=== PATIENT | male | born 1945 | race African-American/Black ===

== ENCOUNTER 2020-10-26 11:12 | Inpatient (IN) ==
[2020-10-26] MEDS ORDERED: LACTATED RINGERS 1,000 ML IV ONE ×2 (11:49→14:01)
[2020-10-26 13:01] LABS: Basophils % 0.2 % (0.0-0.8); Eosinophils % 0.1 % (0.00-10.9); Hematocrit 48.5 VOL% (42.0-52.0); Hemoglobin 16.6 GM/DL (14.0-18.0); Immature Granulocytes % 0.4 %; Immature Granulocytes Absolute 0.04 #; Lymphocytes # 0.7 10*3/uL (1.4-4.0); Lymphocytes % 7.1 % (21.2-54.2); Mean Corpuscular HGB Conc 34.2 GM/DL (32-36); Mean Corpuscular Volume 81.4 FL (87-102); Monocytes % 4.6 % (1.7-12.7); Neutrophils % 87.6 % (38.7-73.9); Platelet Count 288 T/CUMM (130-400); Red Blood Count 5.96 MC/CUMM (3.8-5.5); Red Cell Distribution Width 12.6 % (9.3-17.3)
[2020-10-26 14:33] LABS: Alanine Aminotransferase < 9 U/L (16-61); Albumin 2.9 G/DL (3.4-5.0); Alkaline Phosphatase 89 U/L (45-117); Aspartate Amino Transferase 16 U/L (0-37); Blood Urea Nitrogen 32 MG/DL (7-18); Calcium 10.7 MG/DL (8.5-10.1); Carbon Dioxide 27 MMOL/L (21-32); Estimated Glom Filtration Rate 73 ML/MIN; Glucose 102 MG/DL (74-106); Osmolality,Calculated 289.1 MOS/KG (273-304); Potassium 4.8 MMOL/L (3.5-5.1); Sodium 142 MMOL/L (136-145); Total Protein 8.2 G/DL (6.4-8.2)
[2020-10-26] MEDS ORDERED: PANTOPRAZOLE 40 MG VIAL IV STA (15:55)
[2020-10-26] MEDS ORDERED: SODIUM CHLORIDE 0.9% 2,000 ML IV SCH (16:00)
[2020-10-26] MEDS: cefTRIAXone 1,000 MG in SODIUM CHLORIDE 0.9% 100 ML IV SCH (16:33)
[2020-10-26] MEDS ORDERED: ACETAMINOPHEN 650 MG SUPP RECTAL PRN (16:40)
[2020-10-26] MEDS ORDERED: ONDANSETRON 4 MG/2 ML VIAL IV PRN (16:40)
[2020-10-26 16:44] LABS: Bacteria,Urine Occasional /HPF (Few); Bilirubin,Urine Negative (Negative); Blood, Urine Small mg/dL (Negative); Glucose,Urine (UA) Negative (Negative); Hyaline Casts,Urine 49 /LPF (0-3); Ketones,Urine 5 mg/dL (Negative); Mucus,Urine Occasional /LPF (Occasional); Nitrite,Urine Negative (Negative); Protein,Urine Negative; RBC,Urine 2 /HPF (0-4); Squamous Epithelial Cell,Urine Occasional /HPF (0-10); Urine Appearance CLEAR (Clear); Urine Color Amber (Yellow); Urine Specific Gravity 1.016 (1.001-1.035)
[2020-10-26] MEDS: SODIUM CHLORIDE 0.9% 1,000 ML IV SCH (18:32)
[2020-10-26] MEDS: PANTOPRAZOLE 40 MG VIAL IV SCH (21:56)
[2020-10-27 04:30] LABS: Basophils % 0.2 % (0.0-0.8); Eosinophils % 0.3 % (0.00-10.9); Hematocrit 48.7 VOL% (42.0-52.0); Hemoglobin 16.3 GM/DL (14.0-18.0); Immature Granulocytes % 0.6 %; Immature Granulocytes Absolute 0.06 #; Lymphocytes # 0.7 10*3/uL (1.4-4.0); Lymphocytes % 6.7 % (21.2-54.2); Mean Corpuscular HGB Conc 33.5 GM/DL (32-36); Monocytes % 6.4 % (1.7-12.7); Neutrophils % 85.8 % (38.7-73.9); Platelet Count 278 T/CUMM (130-400); Red Blood Count 5.87 MC/CUMM (3.8-5.5); Red Cell Distribution Width 12.9 % (9.3-17.3); White Blood Count 10.4 T/CUMM (4-12)
[2020-10-27 05:11] LABS: Osmolality,Calculated 289.8 MOS/KG (273-304)
[2020-10-27] MEDS: SODIUM CHLORIDE 0.9% 1,000 ML IV SCH ×2 (06:33→19:30)
[2020-10-27] MEDS: PANTOPRAZOLE 40 MG VIAL IV SCH ×2 (11:03→20:41)
[2020-10-27] MEDS ORDERED: TUBERCULIN SKIN TEST 0.1 ML SYRINGE INTRADERM ONE (14:00)
[2020-10-27] MEDS: cefTRIAXone 1,000 MG in SODIUM CHLORIDE 0.9% 100 ML IV SCH (17:00)
[2020-10-27] MEDS: THIAMINE 200 MG/2 ML VIAL IV SCH (17:01)
[2020-10-28 05:36] LABS: Basophils % 0.1 % (0.0-0.8); Hematocrit 48.3 VOL% (42.0-52.0); Hemoglobin 15.3 GM/DL (14.0-18.0); Immature Granulocytes % 0.5 %; Immature Granulocytes Absolute 0.07 #; Lymphocytes # 0.5 10*3/uL (1.4-4.0); Lymphocytes % 3.5 % (21.2-54.2); Mean Corpuscular HGB Conc 31.7 GM/DL (32-36); Mean Corpuscular Volume 86.6 FL (87-102); Mean Platelet Volume 11.6 FL (9.6-12.0); Monocytes % 3.9 % (1.7-12.7); Platelet Count 254 T/CUMM (130-400); Red Blood Count 5.58 MC/CUMM (3.8-5.5); Red Cell Distribution Width 13.2 % (9.3-17.3)
[2020-10-28 06:01] LABS: Calcium 9.7 MG/DL (8.5-10.1); Potassium 3.9 MMOL/L (3.5-5.1)
[2020-10-28 06:03] LABS: Lymphocytes 1 % (20-55); Platelet Estimate Normal; Segmented Neutrophils 96 % (50-85); Total Cells Counted 100
[2020-10-28] MEDS: LACTATED RINGERS 1,000 ML IV SCH ×2 (08:11→19:30)
[2020-10-28] MEDS: THIAMINE 200 MG/2 ML VIAL IV SCH (08:12)
[2020-10-28] MEDS: PANTOPRAZOLE 40 MG VIAL IV SCH ×2 (08:14→20:15)
[2020-10-28] MEDS ORDERED: METHYLENE BLUE 10 ML VIAL IV ONE (09:01)
[2020-10-28] MEDS ORDERED: fentaNYL 100 MCG/2 ML VIAL ONE (09:13)
[2020-10-28] MEDS ORDERED: PHENYLEPHRINE 10 MG/1 ML VIAL IV ONE (09:25)
[2020-10-28] MEDS ORDERED: GLYCOPYRROLATE 0.4 MG/2 ML VIAL ONE (09:54)
[2020-10-28] MEDS ORDERED: ROCURONIUM 50 MG/5 ML VIAL IV ONE (09:54)
[2020-10-28] MEDS ORDERED: SEVOFLURANE 1 UNIT/15 MINUTE INH ONE (09:54)
[2020-10-28] MEDS ORDERED: propofoL 200 MG/20 ML VIAL IV ONE (09:54)
[2020-10-28] MEDS ORDERED: PHENYLEPHRINE 1 MG/10 ML SYRINGE IV ONE (09:54)
[2020-10-28] MEDS ORDERED: LIDOCAINE 2% 5 ML VIAL ONE (09:54)
[2020-10-28] MEDS ORDERED: NEOSTIGMINE 10 MG/10 ML VIAL ONE (09:55)
[2020-10-28] MEDS ORDERED: TISSUE ADHESIVE 1 EACH APPLICATOR TOP ONE (10:24)
[2020-10-28] MEDS: cefTRIAXone 1,000 MG in SODIUM CHLORIDE 0.9% 100 ML IV SCH (16:33)
[2020-10-29] MEDS: LACTATED RINGERS 1,000 ML IV SCH (05:25)
[2020-10-29 08:55] LABS: Basophils % 0.1 % (0.0-0.8); Eosinophils % 0.1 % (0.00-10.9); Hematocrit 44.8 VOL% (42.0-52.0); Hemoglobin 14.7 GM/DL (14.0-18.0); Immature Granulocytes % 0.5 %; Immature Granulocytes Absolute 0.07 #; Lymphocytes # 0.6 10*3/uL (1.4-4.0); Lymphocytes % 4.1 % (21.2-54.2); Mean Corpuscular HGB Conc 32.8 GM/DL (32-36); Mean Corpuscular Volume 85.7 FL (87-102); Mean Platelet Volume 11.5 FL (9.6-12.0); Monocytes % 2.8 % (1.7-12.7); Neutrophils % 92.4 % (38.7-73.9); Platelet Count 228 T/CUMM (130-400); Red Blood Count 5.23 MC/CUMM (3.8-5.5); Red Cell Distribution Width 13.2 % (9.3-17.3)
[2020-10-29 09:09] LABS: Calcium 9.4 MG/DL (8.5-10.1); Osmolality,Calculated 300.7 MOS/KG (273-304); Potassium 3.8 MMOL/L (3.5-5.1)
[2020-10-29 09:12] LABS: Band Neutrophils 1 % (0-10); Hypochromasia Slight; Lymphocytes 4 % (20-55); Microcytosis Slight; Platelet Estimate Adequate; Segmented Neutrophils 90 % (50-85); Total Cells Counted 100
[2020-10-29] MEDS: PANTOPRAZOLE 40 MG VIAL IV SCH ×2 (10:39→21:24)
[2020-10-29] MEDS: THIAMINE 200 MG/2 ML VIAL IV SCH (10:40)
[2020-10-29] MEDS: cefTRIAXone 1,000 MG in SODIUM CHLORIDE 0.9% 100 ML IV SCH (18:03)
[2020-10-30 04:05] LABS: Eosinophils % 0.3 % (0.00-10.9); Hematocrit 43.1 VOL% (42.0-52.0); Hemoglobin 14.1 GM/DL (14.0-18.0); Immature Granulocytes % 0.2 %; Immature Granulocytes Absolute 0.02 #; Lymphocytes # 0.6 10*3/uL (1.4-4.0); Lymphocytes % 6.1 % (21.2-54.2); Mean Corpuscular HGB Conc 32.7 GM/DL (32-36); Mean Corpuscular Volume 84.5 FL (87-102); Mean Platelet Volume 11.7 FL (9.6-12.0); Monocytes % 4.7 % (1.7-12.7); Neutrophils % 88.7 % (38.7-73.9); Platelet Count 189 T/CUMM (130-400); Red Cell Distribution Width 13.2 % (9.3-17.3); White Blood Count 9.9 T/CUMM (4-12)
[2020-10-30 04:34] LABS: Calcium 9.4 MG/DL (8.5-10.1); Osmolality,Calculated 303.7 MOS/KG (273-304); Potassium 3.4 MMOL/L (3.5-5.1)
[2020-10-30] MEDS: PANTOPRAZOLE 40 MG VIAL IV SCH ×2 (08:35→21:48)
[2020-10-30] MEDS: POTASSIUM PHOS/SOD PHOS POWDER 250 MG PACK PO SCH ×2 (11:26→21:46)
[2020-10-30] MEDS ORDERED: POTASSIUM PHOSPHATE 15 MMOL in SODIUM CHLORIDE 0.9% 100 ML IV ONE (13:00)
[2020-10-30] MEDS: LACTATED RINGERS 1,000 ML IV SCH ×2 (16:48→16:49)
[2020-10-30] MEDS: cefTRIAXone 1,000 MG in SODIUM CHLORIDE 0.9% 100 ML IV SCH (16:48)
[2020-10-31] MEDS: LACTATED RINGERS 1,000 ML IV SCH ×3 (02:53→18:33)
[2020-10-31 06:17] LABS: Basophils % 0.1 % (0.0-0.8); Eosinophils # 0.2 10*3/uL (0.0-0.87); Hematocrit 39.5 VOL% (42.0-52.0); Hemoglobin 12.8 GM/DL (14.0-18.0); Immature Granulocytes % 0.1 %; Immature Granulocytes Absolute 0.01 #; Lymphocytes # 0.7 10*3/uL (1.4-4.0); Lymphocytes % 8.3 % (21.2-54.2); Mean Corpuscular HGB Conc 32.4 GM/DL (32-36); Mean Corpuscular Volume 85.9 FL (87-102); Mean Platelet Volume 11.7 FL (9.6-12.0); Monocytes % 5.5 % (1.7-12.7); Platelet Count 172 T/CUMM (130-400); Red Cell Distribution Width 13.2 % (9.3-17.3); White Blood Count 7.8 T/CUMM (4-12)
[2020-10-31 06:27] LABS: Calcium 8.9 MG/DL (8.5-10.1); Osmolality,Calculated 295.1 MOS/KG (273-304); Potassium 3.4 MMOL/L (3.5-5.1)
[2020-10-31] MEDS: POTASSIUM PHOS/SOD PHOS POWDER 250 MG PACK PO SCH (09:43)
[2020-10-31] MEDS: PANTOPRAZOLE 40 MG VIAL IV SCH (09:44)
[2020-10-31] MEDS: GLYCERIN ADULT SUPP RECTAL ONE ×2 (11:12→12:24)
[2020-10-31 12:01] VITALS: BP 135/78
== END 2020-10-31 15:50 | DRG 374 ==
LOC: N.ED 11:12 → N.EDINP 16:54 → SUATTDRO 16:54 → N.4E 17:51
PROVIDERS: ADMIT Internal Medicine; ATTEND Internal Medicine